=== PATIENT | male | born 1980 | race American Indian/Alaskan Native ===

== ENCOUNTER 2021-10-18 07:31 | Inpatient (IN) | payer SELFPAY ==
--- NOTE | 2021-10-18 08:26 | Emergency Department Report ---
ED General Adult HPI - General Chief complaint: Altered Mental Status Time Seen by Provider: 10/18/21 08:09 Source: patient, EMS (EMS documentation reviewed and appreciated), RN notes reviewed Mode of arrival: Stretcher Limitations: Altered Mental Status - History of Present Illness Initial comments: The patient was evaluated in the emergency department for symptoms described in the history of present illness. He/she was evaluated in the context of the global COVID-19 pandemic, which necessitated consideration that the patient might be at risk for infection with the virus that causes COVID-19. Institutional protocols and algorithms that pertain to the evaluation of helen ents at risk for COVID-19 are in a state of rapid change based on information released by regulatory bodies including the CDC and federal and state organizations. These policies and algorithms were followed during the patient's care in the emergency department. Please note that these policies, procedures and recommendations changed on a rapid basis. As per EMS documentation, EMS and fire department dispatched to a local street and [address] four 41-year-old male complaining of a psychiatric problem/abnormal behavior/suicide attempt. Patient is reportedly running in the middle of above street intersection, trying to jump on cars and open doors as they were moving. Police Department detained the patient in handcuffs, and patient is reportedly combative in the field. Patient required administration of haloperidol, 5 mg, midazolam, 5 mg, and Benadryl, 50 mg. The patient is a 41-year-old gentleman with a possible history of psychiatric disease. He is brought to the hospital by emergency medical services. Patient is acutely febrile to 102.5 degrees rectally, tachycardic, and markedly diaphoretic. The patient is acutely altered. His last known well time is not known. As per verbal report from nursing team, 911 is activated because the patient is running around on the street, and possibly jumping up and down in cars. In the emergency room, the patient is confused but moving 4 extremities. He is not able to describe the qualitative nature of his symptoms, exacerbating factors relieving factors or aggravating factors. He is not accompanied by friends or family at this time for additional information. -: unknown - Related Data Allergies Allergy/AdvReac Type Severity Reaction Status Date / Time No Known Allergies Allergy Verified 10/18/21 08:28 ED Review of Systems ROS: Stated complaint: COMBATIVE Other details as noted in HPI Comment: Unobtainable due to pts medical conditions ED Physical Exam - General Limitations: Altered Mental Status General appearance: anxious - Head Head exam: Present: atraumatic, normocephalic - Eye Eye exam: Present: normal appearance, EOMI - ENT ENT exam: Present: normal exam, normal orophraynx, mucous membranes moist, normal external ear exam - Neck Neck exam: Present: normal inspection, full ROM. Absent: tenderness, meningismus - Respiratory Respiratory exam: Present: normal lung sounds bilaterally. Absent: respiratory distress, wheezes, rales, rhonchi, stridor, decreased breath sounds - Cardiovascular Cardiovascular Exam: Present: normal rhythm, tachycardia, normal heart sounds. Absent: bradycardia, irregular rhythm, systolic murmur, diastolic murmur, rubs, gallop - GI/Abdominal GI/Abdominal exam: Present: soft. Absent: distended, tenderness, guarding, rebound, rigid, pulsatile mass - Rectal Rectal exam: Present: normal inspection - exam: Present: normal inspection - Extremities Exam Extremities exam: Present: normal inspection, full ROM, other (2+ pulses noted in the bilateral upper and lower extremities. There is no palpable cord. negative Homans sign. Muscular compartments are soft. The pelvis is stable.). Absent: pedal edema, calf tenderness - Back Exam Back exam: Present: normal inspection. Absent: tenderness, CVA tenderness (R), CVA tenderness (L), paraspinal tenderness, vertebral tenderness - Neurological Exam Neurological exam: Present: altered (There is fatigable clonus in the bilateral lower extremities. There are downgoing plantar reflexes.), other (There is no facial droop. The tongue is midline. Moving 4 extremities spontaneously.). Absent: reflexes normal (The patient is not hyperreflexic) - Psychiatric Psychiatric exam: Present: anxious - Skin Skin exam: Present: warm, dry, intact, normal color. Absent: rash ED Course Vital Signs 10/18/21 10/18/21 10/18/21 08:36 08:45 09:01 Temperature 102.5 F H Pulse Rate 109 H Respiratory 31 H Rate Blood Pressure 126/80 O2 Sat by Pulse 88 90 92 Oximetry 10/18/21 10/18/21 10/18/21 09:26 09:31 09:43 Temperature Pulse Rate 103 H 106 H Respiratory 24 30 H Rate Blood Pressure 126/80 134/85 O2 Sat by Pulse 94 94 94 Oximetry 10/18/21 10/18/21 10/18/21 09:45 10:01 10:15 Temperature Pulse Rate 104 H 100 H 102 H Respiratory 29 H 28 H 29 H Rate Blood Pressure 142/74 118/76 124/79 O2 Sat by Pulse 94 94 94 Oximetry 10/18/21 10/18/21 10/18/21 10:18 10:31 10:45 Temperature 98.7 F Pulse Rate 108 H 111 H Respiratory 22 23 Rate Blood Pressure 133/73 116/65 O2 Sat by Pulse 89 91 Oximetry 10/18/21 10/18/21 11:01 11:15 Temperature Pulse Rate 104 H 103 H Respiratory 27 H 28 H Rate Blood Pressure 117/64 108/65 O2 Sat by Pulse 92 95 Oximetry - Reevaluation(s) Reevaluation #1: 10/18/21 09:12 Differential diagnosis, including but not limited to: Acute agitated delirium, meningitis, encephalitis, toxic encephalopathy, metabolic encephalopathy Pneumonia, UTI, Neuroleptic malignant syndrome Assessment and plan: 41-year-old gentleman with acute agitated delirium, found to be febrile, diaphoretic, and tachycardic. There are no meningeal signs. Code sepsis called overhead. Medicate aggressively with ceftriaxone, acyclovir, vancomycin and steroids. Place patient on isolation, x-ray of the chest unremarkable, laboratory studies demonstrate hemoconcentration, lactic acidosis and metabolic acidosis. Patient not accompanied by friends or family at this time for collateral information or additional information. He does require a spinal tap for urgent diagnostic reasons, to exclude intracranial infection/process. He will likely require 2 provider emergent/administrative consent for spinal tap, with possible component of moderate sedation. Reassess once CT scan brain has been acquired and interpreted. Anticipate admission to the medical service. I have placed this patient on a 1013 for documented psychotic behavior, but he cannot be medically cleared from emergency room. He will require admission to the medical service for optimization Reevaluation #2: 10/18/21 09:50 Patient seen and reexamined. He is remarkably lucid. His temperature is now 97 degrees. He is awake, alert, oriented. He exhibits decision-making capacity at this time. He does not have recollection of what transpired prior to his arrival. He has no meningeal signs, and he is not currently encephalopathic. Laboratory studies are reviewed, and demonstrate lactic acidosis, hemoconcentra tion, as well as hyperammonemia. Laboratory studies are initially grossly hemolyzed, multiple calls made to the chemistry lab, they state phlebotomy is coming by to perform repeat acquisition of chemistries. I specifically discussed spinal tap recommendation with patient, and specific indications for the spinal tap. I also discussed risks and benefits, and medical rationale behind spinal tap. At this point in time, meningitis/encephalitis is very unlikely. However, given initial presentation, I find it prudent to acquire CSF. The patient is agreeable, and indicates he will provide verbal and written informed consent for spinal tap. At this point in time, does not require moderate sedation. Hospital physician, Dr. Yamilka Maxwell to admit to [facility] Reevaluation #3: 10/18/21 11:01 Spinal tap is successful. Reevaluation #4: 10/18/21 12:05 Repeat glucose 120. Patient eating. We will hold off on dextrose drip at this time. - Lumbar Puncture Consent Obtained: verbal consent, written consent, emergent situation Time Out Performed: Yes Indication for Procedure: fever work up Patient Position: Sitting Upright/Leaning F Skin Prep: Povidone-Iodine 1% Local Anesthetic Used: Lidocaine 1% Amount of anesthesia used (mls): 8 Spinal Needle Gauge: 20G Spinal Needle Length: 3in Interspace Used: L4-L5 Fluid Initially Obtained: clear Complications: none Patient Tolerated Procedure: well ED Medical Decision Making - Lab Data Result diagrams: 10/18/21 08:35 10/18/21 09:34 Lab Results 10/18/21 10/18/21 10/18/21 Range/Units 08:35 08:35 08:35 WBC 10.1 (4.5-11.0) K/mm3 RBC 5.20 H (3.65-5.03) M/mm3 Hgb 16.4 H (11.8-15.2) gm/dl Hct 51.0 H (35.5-45.6) % MCV 98 H (84-94) fl MCH 32 (28-32) pg MCHC 32 (32-34) % RDW 14.0 (13.2-15.2) % Plt Count 259 (140-440) K/mm3 PT 13.4 (12.2-14.9) Sec. INR 0.92 (0.87-1.13) APTT 24.3 (24.2-36.6) Sec. Sodium (137-145) mmol/L Chloride (98-107) mmol/L Carbon Dioxide (22-30) mmol/L Anion Gap mmol/L BUN (9-20) mg/dL Creatinine (0.8-1.3) mg/dL Estimated GFR ml/min BUN/Creatinine Ratio % Glucose (75-100) mg/dL Lactic Acid 9.00 H* (0.7-2.0) mmol/L Calcium (8.4-10.2) mg/dL Magnesium (1.7-2.3) mg/dL Total Bilirubin (0.1-1.2) mg/dL Troponin T (0.00-0.029) ng/mL Total Protein (6.3-8.2) g/dL Salicylates (2.8-20.0) mg/dL Acetaminophen (10.0-30.0) ug/mL 10/18/21 10/18/21 10/18/21 Range/Units 08:35 08:35 08:35 WBC (4.5-11.0) K/mm3 RBC (3.65-5.03) M/mm3 Hgb (11.8-15.2) gm/dl Hct (35.5-45.6) % MCV (84-94) fl MCH (28-32) pg MCHC (32-34) % RDW (13.2-15.2) % Plt Count (140-440) K/mm3 PT (12.2-14.9) Sec. INR (0.87-1.13) APTT (24.2-36.6) Sec. Sodium 139 (137-145) mmol/L Chloride 102.0 (98-107) mmol/L Carbon Dioxide 15 L (22-30) mmol/L Anion Gap 32 mmol/L BUN 18 (9-20) mg/dL Creatinine 2.4 H (0.8-1.3) mg/dL Estimated GFR 36 ml/min BUN/Creatinine Ratio 8 % Glucose 82 (75-100) mg/dL Lactic Acid (0.7-2.0) mmol/L Calcium 10.7 H (8.4-10.2) mg/dL Magnesium 3.70 H (1.7-2.3) mg/dL Total Bilirubin 0.50 (0.1-1.2) mg/dL Troponin T 0.013 (0.00-0.029) ng/mL Total Protein 9.9 H (6.3-8.2) g/dL Salicylates < 0.3 L (2.8-20.0) mg/dL Acetaminophen 5.0 L (10.0-30.0) ug/mL Lab Results 10/18/21 10/18/21 10/18/21 Range/Units 08:35 08:35 08:35 WBC 10.1 (4.5-11.0) K/mm3 RBC 5.20 H (3.65-5.03) M/mm3 Hgb 16.4 H (11.8-15.2) gm/dl Hct 51.0 H (35.5-45.6) % MCV 98 H (84-94) fl MCH 32 (28-32) pg MCHC 32 (32-34) % RDW 14.0 (13.2-15.2) % Plt Count 259 (140-440) K/mm3 Add Manual Diff Complete Total Counted 100 Seg Neuts % (Manual) 67.0 (40.0-70.0) % Band Neutrophils % 2.0 % Lymphocytes % (Manual) 23.0 (13.4-35.0) % Reactive Lymphs % (Man) 0 % Monocytes % (Manual) 6.0 (0.0-7.3) % Eosinophils % (Manual) 1.0 (0.0-4.3) % Basophils % (Manual) 0 (0.0-1.8) % Metamyelocytes % 1.0 % Myelocytes % 0 % Promyelocytes % 0 % Blast Cells % 0 % Nucleated RBC % Not Reportable Seg Neutrophils # Man 6.8 (1.8-7.7) K/mm3 Band Neutrophils # 0.2 K/mm3 Lymphocytes # (Manual) 2.3 (1.2-5.4) K/mm3 Abs React Lymphs (Man) 0.0 K/mm3 Monocytes # (Manual) 0.6 (0.0-0.8) K/mm3 Eosinophils # (Manual) 0.1 (0.0-0.4) K/mm3 Basophils # (Manual) 0.0 (0.0-0.1) K/mm3 Metamyelocytes # 0.1 K/mm3 Myelocytes # 0.0 K/mm3 Promyelocytes # 0.0 K/mm3 Blast Cells # 0.0 K/mm3 WBC Morphology Not Reportable Hypersegmented Neuts Not Reportable Hyposegmented Neuts Not Reportable Hypogranular Neuts Not Reportable Smudge Cells Not Reportable Toxic Granulation Not Reportable Toxic Vacuolation Not Reportable Dohle Bodies Not Reportable Pelger-Huet Anomaly Not Reportable Dangelo Rods Not Reportable Platelet Estimate Consistent w auto Clumped Platelets Not Reportable Plt Clumps, EDTA Not Reportable Large Platelets Not Reportable Giant Platelets Not Reportable Platelet Satelliting Not Reportable Plt Morphology Comment Not Reportable RBC Morphology Normal Dimorphic RBCs Not Reportable Polychromasia Not Reportable Hypochromasia Not Reportable Poikilocytosis Not Reportable Anisocytosis Not Reportable Microcytosis Not Reportable Macrocytosis Not Reportable Spherocytes Not Reportable Pappenheimer Bodies Not Reportable Sickle Cells Not Reportable Target Cells Not Reportable Tear Drop Cells Not Reportable Ovalocytes Not Reportable Helmet Cells Not Reportable Arechiga-[place] Bodies Not Reportable [place] Rings Not Reportable [place] Cells Not Reportable Bite Cells Not Reportable Crenated Cell Not Reportable Elliptocytes Not Reportable Acanthocytes (Spur) Not Reportable Rouleaux Not Reportable Hemoglobin C Crystals Not Reportable Schistocytes Not Reportable Malaria parasites Not Reportable Juan Bodies Not Reportable Hem Pathologist Commnt No PT 13.4 (12.2-14.9) Sec. INR 0.92 (0.87-1.13) APTT 24.3 (24.2-36.6) Sec. Sodium Potassium Chloride Carbon Dioxide Anion Gap BUN Creatinine Estimated GFR BUN/Creatinine Ratio Glucose Lactic Acid 9.00 H* (0.7-2.0) mmol/L Calcium Magnesium Total Bilirubin AST ALT Alkaline Phosphatase Ammonia (25-60) umol/L Total Creatine Kinase Troponin T Total Protein Albumin Albumin/Globulin Ratio TSH (0.270-4.200) mlU/mL Salicylates (2.8-20.0) mg/dL Acetaminophen (10.0-30.0) ug/mL Plasma/Serum Alcohol (0-0.07) % 10/18/21 10/18/21 10/18/21 Range/Units 08:35 08:35 08:35 WBC (4.5-11.0) K/mm3 RBC (3.65-5.03) M/mm3 Hgb (11.8-15.2) gm/dl Hct (35.5-45.6) % MCV (84-94) fl MCH (28-32) pg MCHC (32-34) % RDW (13.2-15.2) % Plt Count (140-440) K/mm3 Add Manual Diff Total Counted Seg Neuts % (Manual) (40.0-70.0) % Band Neutrophils % % Lymphocytes % (Manual) (13.4-35.0) % Reactive Lymphs % (Man) % Monocytes % (Manual) (0.0-7.3) % Eosinophils % (Manual) (0.0-4.3) % Basophils % (Manual) (0.0-1.8) % Metamyelocytes % % Myelocytes % % Promyelocytes % % Blast Cells % % Nucleated RBC % Seg Neutrophils # Man (1.8-7.7) K/mm3 Band Neutrophils # K/mm3 Lymphocytes # (Manual) (1.2-5.4) K/mm3 Abs React Lymphs (Man) K/mm3 Monocytes # (Manual) (0.0-0.8) K/mm3 Eosinophils # (Manual) (0.0-0.4) K/mm3 Basophils # (Manual) (0.0-0.1) K/mm3 Metamyelocytes # K/mm3 Myelocytes # K/mm3 Promyelocytes # K/mm3 Blast Cells # K/mm3 WBC Morphology Hypersegmented Neuts Hyposegmented Neuts Hypogranular Neuts Smudge Cells Toxic Granulation Toxic Vacuolation Dohle Bodies Pelger-Huet Anomaly Dangelo Rods Platelet Estimate Clumped Platelets Plt Clumps, EDTA Large Platelets Giant Platelets Platelet Satelliting Plt Morphology Comment RBC Morphology Dimorphic RBCs Polychromasia Hypochromasia Poikilocytosis Anisocytosis Microcytosis Macrocytosis Spherocytes Pappenheimer Bodies Sickle Cells Target Cells Tear Drop Cells Ovalocytes Helmet Cells Arechiga-Summerfield Bodies [place] Rings [place] Cells Bite Cells Crenated Cell Elliptocytes Acanthocytes (Spur) Rouleaux Hemoglobin C Crystals Schistocytes Malaria parasites Juan Bodies Hem Pathologist Commnt PT (12.2-14.9) Sec. INR (0.87-1.13) APTT (24.2-36.6) Sec. Sodium TNR Potassium TNR Chloride TNR Carbon Dioxide TNR Anion Gap TNR BUN TNR Creatinine TNR Estimated GFR TNR BUN/Creatinine Ratio TNR Glucose TNR Lactic Acid (0.7-2.0) mmol/L Calcium TNR Magnesium TNR Total Bilirubin TNR AST TNR ALT TNR Alkaline Phosphatase TNR Ammonia 86.0 H (25-60) umol/L Total Creatine Kinase TNR Troponin T TNR Total Protein TNR Albumin TNR Albumin/Globulin Ratio TNR TSH 1.490 (0.270-4.200) mlU/mL Salicylates (2.8-20.0) mg/dL Acetaminophen (10.0-30.0) ug/mL Plasma/Serum Alcohol (0-0.07) % 10/18/21 10/18/21 10/18/21 Range/Units 08:35 08:35 08:35 WBC (4.5-11.0) K/mm3 RBC (3.65-5.03) M/mm3 Hgb (11.8-15.2) gm/dl Hct (35.5-45.6) % MCV (84-94) fl MCH (28-32) pg MCHC (32-34) % RDW (13.2-15.2) % Plt Count (140-440) K/mm3 Add Manual Diff Total Counted Seg Neuts % (Manual) (40.0-70.0) % Band Neutrophils % % Lymphocytes % (Manual) (13.4-35.0) % Reactive Lymphs % (Man) % Monocytes % (Manual) (0.0-7.3) % Eosinophils % (Manual) (0.0-4.3) % Basophils % (Manual) (0.0-1.8) % Metamyelocytes % % Myelocytes % % Promyelocytes % % Blast Cells % % Nucleated RBC % Seg Neutrophils # Man (1.8-7.7) K/mm3 Band Neutrophils # K/mm3 Lymphocytes # (Manual) (1.2-5.4) K/mm3 Abs React Lymphs (Man) K/mm3 Monocytes # (Manual) (0.0-0.8) K/mm3 Eosinophils # (Manual) (0.0-0.4) K/mm3 Basophils # (Manual) (0.0-0.1) K/mm3 Metamyelocytes # K/mm3 Myelocytes # K/mm3 Promyelocytes # K/mm3 Blast Cells # K/mm3 WBC Morphology Hypersegmented Neuts Hyposegmented Neuts Hypogranular Neuts Smudge Cells Toxic Granulation Toxic Vacuolation Dohle Bodies Pelger-Huet Anomaly Dangelo Rods Platelet Estimate Clumped Platelets Plt Clumps, EDTA Large Platelets Giant Platelets Platelet Satelliting Plt Morphology Comment RBC Morphology Dimorphic RBCs Polychromasia Hypochromasia Poikilocytosis Anisocytosis Microcytosis Macrocytosis Spherocytes Pappenheimer Bodies Sickle Cells Target Cells Tear Drop Cells Ovalocytes Helmet Cells Arechiga-Summerfield Bodies [place] Rings [place] Cells Bite Cells Crenated Cell Elliptocytes Acanthocytes (Spur) Rouleaux Hemoglobin C Crystals Schistocytes Malaria parasites Juan Bodies Hem Pathologist Commnt PT (12.2-14.9) Sec. INR (0.87-1.13) APTT (24.2-36.6) Sec. Sodium Potassium Chloride Carbon Dioxide Anion Gap BUN Creatinine Estimated GFR BUN/Creatinine Ratio Glucose Lactic Acid (0.7-2.0) mmol/L Calcium Magnesium Total Bilirubin AST ALT Alkaline Phosphatase Ammonia (25-60) umol/L Total Creatine Kinase Troponin T Total Protein Albumin Albumin/Globulin Ratio TSH (0.270-4.200) mlU/mL Salicylates < 0.3 L (2.8-20.0) mg/dL Acetaminophen 5.0 L (10.0-30.0) ug/mL Plasma/Serum Alcohol 0.08 H (0-0.07) % 10/18/21 10/18/21 Range/Units 09:34 09:34 WBC (4.5-11.0) K/mm3 RBC (3.65-5.03) M/mm3 Hgb (11.8-15.2) gm/dl Hct (35.5-45.6) % MCV (84-94) fl MCH (28-32) pg MCHC (32-34) % RDW (13.2-15.2) % Plt Count (140-440) K/mm3 Add Manual Diff Total Counted Seg Neuts % (Manual) (40.0-70.0) % Band Neutrophils % % Lymphocytes % (Manual) (13.4-35.0) % Reactive Lymphs % (Man) % Monocytes % (Manual) (0.0-7.3) % Eosinophils % (Manual) (0.0-4.3) % Basophils % (Manual) (0.0-1.8) % Metamyelocytes % % Myelocytes % % Promyelocytes % % Blast Cells % % Nucleated RBC % Seg Neutrophils # Man (1.8-7.7) K/mm3 Band Neutrophils # K/mm3 Lymphocytes # (Manual) (1.2-5.4) K/mm3 Abs React Lymphs (Man) K/mm3 Monocytes # (Manual) (0.0-0.8) K/mm3 Eosinophils # (Manual) (0.0-0.4) K/mm3 Basophils # (Manual) (0.0-0.1) K/mm3 Metamyelocytes # K/mm3 Myelocytes # K/mm3 Promyelocytes # K/mm3 Blast Cells # K/mm3 WBC Morphology Hypersegmented Neuts Hyposegmented Neuts Hypogranular Neuts Smudge Cells Toxic Granulation Toxic Vacuolation Dohle Bodies Pelger-Huet Anomaly Dangelo Rods Platelet Estimate Clumped Platelets Plt Clumps, EDTA Large Platelets Giant Platelets Platelet Satelliting Plt Morphology Comment RBC Morphology Dimorphic RBCs Polychromasia Hypochromasia Poikilocytosis Anisocytosis Microcytosis Macrocytosis Spherocytes Pappenheimer Bodies Sickle Cells Target Cells Tear Drop Cells Ovalocytes Helmet Cells Arechiga-[place] Bodies [place] Rings [place] Cells Bite Cells Crenated Cell Elliptocytes Acanthocytes (Spur) Rouleaux Hemoglobin C Crystals Schistocytes Malaria parasites Juan Bodies Hem Pathologist Commnt PT (12.2-14.9) Sec. INR (0.87-1.13) APTT (24.2-36.6) Sec. Sodium 143 Potassium 5.2 H Chloride 108.5 H Carbon Dioxide 14 L Anion Gap 26 BUN 18 Creatinine 2.0 H Estimated GFR 44 BUN/Creatinine Ratio 9 Glucose 65 L Lactic Acid 5.90 H* (0.7-2.0) mmol/L Calcium 9.3 Magnesium 3.20 H Total Bilirubin 0.30 AST 661 H ALT 481 H Alkaline Phosphatase 108 Ammonia (25-60) umol/L Total Creatine Kinase 2493 H Troponin T 0.015 Total Protein 7.9 Albumin 5.3 H Albumin/Globulin Ratio 2.0 TSH (0.270-4.200) mlU/mL Salicylates (2.8-20.0) mg/dL Acetaminophen (10.0-30.0) ug/mL Plasma/Serum Alcohol (0-0.07) % - EKG Data -: EKG Interpreted by Me EKG shows normal: sinus rhythm Rate: normal - EKG Data 10/18/21 09:50 2 EKG is interpreted at 09: 46 Sinus rhythm, tachycardia, rate 100 bpm. Left axis deviation, left anterior fascicular block, QTC 4 4 5 ms, high left ventricular voltage. Abnormal EKG. Not a STEMI. - Radiology Data Radiology results: report reviewed, image reviewed interpreted by me: 1 view x-ray of the chest, interpreted by myself, negative for acute finding Specifically no infiltrate, no pneumothorax, unremarkable bony anatomy CHEST 1 VIEW 10/18/2021 8:33 AM INDICATION / CLINICAL INFORMATION: Altered Mental Status. COMPARISON: None available. FINDINGS: SUPPORT DEVICES: None. HEART / MEDIASTINUM: No significant abnormality. LUNGS / PLEURA: No significant pulmonary or pleural abnormality. Moderate elevation right hemidiaphragm. No pneumothorax. ADDITIONAL FINDINGS: No significant additional findings. IMPRESSION: No acute abnormality. Signer Name: Irving Orellana MD Signed: 10/18/2021 8:04 AM Workstation Name: [email or web address] CT HEAD WITHOUT CONTRAST INDICATION / CLINICAL INFORMATION: Altered Mental Status. TECHNIQUE: Axial imaging performed from the skull apex through the skull base without the use of contrast. Sagittal and coronal reformatted images. All CT scans at this location are performed using CT dose reduction for ALARA by means of automated exposure control. COMPARISON: None available. FINDINGS: CEREBRAL PARENCHYMA: No significant abnormality. No acute territorial infarct. HEMORRHAGE: None. EXTRA-AXIAL SPACES: Normal in size and morphology for the patient's age. VENTRICULAR SYSTEM: Normal in size and morphology for the patient's age. MIDLINE SHIFT OR HERNIATION: None. CEREBELLUM / BRAINSTEM: No significant abnormality. CALVARIUM: No significant abnormality. ORBITS: Normal as visualized. PARANASAL SINUSES / MASTOID AIR CELLS: Normal as visualized. SOFT TISSUES of HEAD: No significant abnormality. ADDITIONAL FINDINGS: None. IMPRE SSION: No acute intracranial abnormality. Signer Name: Lebron Adams Jr, MD Signed: 10/18/2021 8:24 AM Workstation Name: [id number] Critical Care Time: Yes Critical care time in (mins) excluding proc time.: 45 Critical care attestation.: If time is entered above; I have spent that time in minutes in the direct care of this critically ill patient, excluding procedure time. ED Disposition Clinical Impression: SIRS (systemic inflammatory response syndrome), Metabolic acidosis, Lactic acidosis, Acute delirium, Renal insufficiency, Transaminitis, Elevated CK, Hypoglycemia Disposition: 09 ADMITTED INPATIENT Is pt being admited?: Yes Condition: Serious
[2021-10-18] MEDS ORDERED: dexAMETHasone 20 MG/5 ML VIAL IV SCH (08:30)
[2021-10-18] MEDS ORDERED: diazePAM 10 MG/2 ML SYRINGE IV SCH (08:30)
[2021-10-18] MEDS ORDERED: cefTRIAXone/NS 2 GM/100 ML 2 GM/100 ML BAG IV SCH (08:30)
[2021-10-18 08:49] LABS: Hemoglobin 16.4 gm/dl (11.8-15.2); Mean Corpuscular HGB Conc 32 % (32-34); Mean Corpuscular Volume 98 fl (84-94); Platelet Count 259 K/mm3 (140-440)
[2021-10-18] MEDS ORDERED: HALOPERIDOL LACTATE 5 MG/1 ML INJ IM PRN (09:00)
[2021-10-18] MEDS ORDERED: ACYCLOVIR 800 MG in SODIUM CHLORIDE 0.9% 100 ML IV SCH (09:00)
[2021-10-18] MEDS ORDERED: SODIUM CHLORIDE 0.9% 1000 ML 3,000 ML IV ONE (09:00)
[2021-10-18] MEDS ORDERED: LORazepam 2 MG/ML VIAL IM PRN (09:00)
[2021-10-18 09:02] LABS: INR 0.92 (0.87-1.13)
[2021-10-18 09:03] LABS: Partial Thromboplastin Time 24.3 Sec. (24.2-36.6)
--- NOTE | 2021-10-18 09:08 | XRay Report ---
CHEST 1 VIEW 10/18/2021 8:33 AM INDICATION / CLINICAL INFORMATION: Altered Mental Status. COMPARISON: None available. FINDINGS: SUPPORT DEVICES: None. HEART / MEDIASTINUM: No significant abnormality. LUNGS / PLEURA: No significant pulmonary or pleural abnormality. Moderate elevation right hemidiaphra gm. No pneumothorax. ADDITIONAL FINDINGS: No significant additional findings. IMPRESSION: No acute abnormality. Signer Name: Irving Orellana MD Signed: 10/18/2021 9:04 AM Workstation Name: [email or web address]
[2021-10-18 09:18] LABS: BUN/Creatinine Ratio TNR; Blood Urea Nitrogen TNR mg/dL (9-20); Calcium TNR mg/dL (8.4-10.2)
[2021-10-18 09:19] LABS: Alanine Aminotransferase TNR units/L (7-56); Albumin TNR g/dL (3.9-5); Hemolysis Index TNR
--- NOTE | 2021-10-18 09:29 | Cat Scan Report ---
CT HEAD WITHOUT CONTRAST INDICATION / CLINICAL INFORMATION: Altered Mental Status. TECHNIQUE: Axial imaging performed from the skull apex through the skull base without the use of cont rast. Sagittal and coronal reformatted images. All CT scans at this location are performed using CT dose reduction for ALARA by means of automated exposure control. COMPARISON: None available. FINDINGS: CEREBRAL PARENCHYMA: No significant abnormality. No acute territorial infarct. HEMORRHAGE: None. EXTRA-AXIAL SPACES: Normal in size and morphology for the patient's age. VENTRICULAR SYSTEM: Normal in size and morphology for the patient's age. MIDLINE SHIFT OR HERNIATION: None. CEREBELLUM / BRAINSTEM: No significant abnormality. CALVARIUM: No significant abnormality. ORBITS: Normal as visualized. PARANASAL SINUSES / MASTOID AIR CELLS: Normal as visualized. SOFT TISSUES of HEAD: No significant abnormality. ADDITIONAL FINDINGS: None. IMPRESSION: No acute intracranial abnormality. Signer Name: Lebron Adams Jr, MD Signed: 10/18/2021 9:24 AM Workstation Name: [id number]
[2021-10-18] MEDS ORDERED: LIDOCAINE (1%) 10 MG/1 ML VIAL 20 ML MDV INFILTRATI ONE (09:49)
[2021-10-18 09:50] LABS: Band Neutrophils # (Manual) 0.2 K/mm3; Basophils % (Manual) 0 % (0.0-1.8); Platelet Estimate Consistent w Auto; RBC Morphology Normal; Total Cells Counted 100
[2021-10-18] MEDS ORDERED: VANCOMYCIN 1,750 MG in SODIUM CHLORIDE 0.9% 500 ML 500 ML IV ONE (10:00)
[2021-10-18] MEDS ORDERED: MIDAZOLAM 5 MG/5 ML INJ MDV IV SCH (10:00)
[2021-10-18 10:04] LABS: Albumin 5.3 g/dL (3.9-5); Calcium 9.3 mg/dL (8.4-10.2)
[2021-10-18] MEDS ORDERED: DEXTROSE 10% *Hypoglycemia IV PRN (10:16)
[2021-10-18] MEDS ORDERED: LACTULOSE 20 GM/30 ML ORAL LIQD PO ONE (10:18)
[2021-10-18] MEDS ORDERED: ACETAMINOPHEN 325 MG TAB PO PRN (10:45)
[2021-10-18] MEDS ORDERED: ONDANSETRON 4 MG/2 ML INJ IV PRN (10:45)
[2021-10-18] MEDS ORDERED: MORPHINE 4 MG/1 ML INJ IV PRN (10:45)
[2021-10-18] MEDS ORDERED: oxyCODONE /ACETAMINOPHEN 5-325MG TAB PO PRN (10:45)
[2021-10-18] MEDS ORDERED: NALOXONE 0.4 MG/1 ML INJ IV PRN (10:45)
[2021-10-18 10:50] LABS: Amphetamine Screen,Urine Negative; Cannabinoid Screen,Urine Negative; Methadone Screen,Urine Negative; Opiate Screen,Urine Negative
[2021-10-18 11:00] LABS: Bilirubin,Urine NEG (Negative); Blood,Urine LG (Negative); Color,Urine Yellow (Yellow); Granular Casts,Urine 3 /LPF; Hyaline Casts,Urine 4 /LPF; Mucus,Urine FEW /HPF; Sperm,Urine 2+ /HPF (NP); Urobilinogen,Urine < 2.0 mg/dL (<2.0)
[2021-10-18] MEDS ORDERED: THIAMINE 100 MG, FOLIC ACID 1 MG, MULTIPLE VITAMIN INJ, ADULT 10 ML in SODIUM CHLORIDE ... IV ONE (11:00)
[2021-10-18 11:14] LABS: Benzodiazepines Screen,Urine Positive; Cocaine Screen,Urine Positive
[2021-10-18] MEDS ORDERED: DEXTROSE 50% IN WATER (25GM) 50 ML SYRINGE IV ONE (11:27)
[2021-10-18] MEDS ORDERED: DEXTROSE 50% IN WATER (25GM) 50 ML SYRINGE IV PRN (11:28)
[2021-10-18] MEDS ORDERED: MIDAZOLAM 2 MG/2 ML INJ IV SCH ×2 (11:30→12:30)
[2021-10-18] MEDS ORDERED: MIDAZOLAM 5 MG/5 ML INJ MDV IV STA (11:44)
[2021-10-18] MEDS ORDERED: LACTATED RINGERS 1,000 ML IV ONE (12:00)
[2021-10-18] MEDS ORDERED: DEXTROSE 50% IN WATER (25GM) 50 ML VIAL IV ONE (12:00)
[2021-10-18] MEDS ORDERED: DEXTROSE 10% IN WATER 1,000 ML IV SCH (12:00)
[2021-10-18 12:30] LABS: Glucose,CSF 88 mg/dL
[2021-10-18 12:35] LABS: Hepatitis B Surface Antigen Non-Reactive (Negative); Hepatitis C Virus Antibody Non-Reactive (NonReactive)
[2021-10-18 12:36] LABS: Appearance,CSF Clear; Red Blood Cell,CSF 17 /mm3 (0-0); Total Cells Counted 87 /mm3; White Blood Cell,CSF 3 /mm3 (1-10)
[2021-10-18] MEDS ORDERED: LACTULOSE 20 GM/30 ML ORAL LIQD PO SCH (13:30)
--- NOTE | 2021-10-18 13:56 | History and Physical Report ---
History of Present Illness Date of examination: 10/18/21 Date of admission: 10/18/21 10:45 Chief complaint: Altered mental status History of present illness: The patient is a 41-year-old gentleman with a possible history of psychiatric disease. He is brought to the hospital by emergency medical services. Patient is acutely febrile to 102.5 degrees rectally, tachycardic, and markedly diaphoretic. The patient is acutely altered. His last known well time is not known. As per verbal report from nursing team, 911 is activated because the patient is running around on the street, and possibly jumping up and down on cars. In the emergency room, the patient is confused but moving 4 extremities. He is not able to describe the qualitative nature of his symptoms, exacerbating factors relieving factors or aggravating factors. He is not accompanied by friends or family at this time for additional information. On presentation, the patient was tachycardic and tachypneic and hypoxic requiring 2 L nasal cannula. Patient had labs are remarkable for potassium 5.2, creatinine 2.0, creatine kinase 2493, lactic acid 9.0 (later decreased to 5.9), magnesium 3.2, AST 661, ALT 41, and ammonia 86. In the ED, the patient underwent lumbar puncture by the ED physician due to concerns for possible meningitis as a source of acute encephalopathy. Patient tolerated the procedure well. Patient was administered 3 L IV fluids, IV Decadron 10 mg x 1, Rocephin, vancomycin, and acyclovir. Patient was placed on a 1013 by the ED physician due to concerns for acute psy chosis. The patient was admitted for management of acute metabolic versus toxic encephalopathy. Past History Past Medical History: No medical history Past Surgical History: No surgical history Social history: , lives with family, full code Family history: hypertension (Mother) Medications and Allergies Allergies Allergy/AdvReac Type Severity Reaction Status Date / Time No Known Allergies Allergy Verified 10/18/21 08:28 Active Meds: Active Medications Acetaminophen (Acetaminophen 325 Mg Tab) 650 mg PO Q4H PRN PRN Reason: Pain MILD(1-3)/Fever >100.5/PATHAK Dextrose (Dextrose 10% *Hypoglycemia) 75 ml IV PRN PRN PRN Reason: Hypoglycemia Dextrose (Dextrose 50% In Water (25gm) 50 Ml Syringe) 50 ml IV Q30MIN PRN; Protocol PRN Reason: Hypoglycemia Enoxaparin Sodium (Enoxaparin 40 Mg/0.4 Ml Inj) 40 mg SUB-Q DAILY RUDDY; Protocol Haloperidol Lactate (Haloperidol Lactate 5 Mg/1 Ml Inj) 5 mg IM Q6H PRN PRN Reason: Agitation Thiamine HCl 100 mg/ Folic Acid 1 mg/ Multivitamins/Minerals 10 ml/ Sodium Chloride 1,011.2 mls @ 250 mls/hr IV ONCE ONE Stop: 10/18/21 15:02 Last Admin: 10/18/21 11:16 Dose: 250 mls/hr Dextrose (D10w) 1,000 mls @ 125 mls/hr IV DIRECT RUDDY Lactulose (Lactulose 20 Gm/30 Ml Oral Liqd) 20 gm PO ONCE@1330 RUDDY Stop: 10/18/21 16:00 Lorazepam (Lorazepam 2 Mg/Ml Vial) 2 mg IM Q4H PRN PRN Reason: Agitation Midazolam HCl (Midazolam 2 Mg/2 Ml Inj) 1 mg IV ONCE@1130 RUDDY Stop: 10/18/21 14:00 Last Admin: 10/18/21 12:47 Dose: 1 mg Morphine Sulfate (Morphine 4 Mg/1 Ml Inj) 2 mg IV Q4H PRN PRN Reason: Pain , Severe (7-10) Naloxone HCl (Naloxone 0.4 Mg/1 Ml Inj) 0.1 mg IV Q2MIN PRN PRN Reason: Res Rate </= 8 or 02 SAT < 92% Ondansetron HCl (Ondansetron 4 Mg/2 Ml Inj) 4 mg IV Q8H PRN PRN Reason: Nausea And Vomiting Oxycodone/Acetaminophen (Oxycodone /Acetaminophen 5-325mg Tab) 1 tab PO Q6H PRN PRN Reason: Pain, Moderate (4-6) Sodium Chloride (Sodium Chloride 0.9% 10 Ml Flush Syringe) 10 ml IV BID RUDDY Sodium Chloride (Sodium Chloride 0.9% 10 Ml Flush Syringe) 10 ml IV PRN PRN PRN Reason: LINE FLUSH Last Admin: 10/18/21 10:45 Dose: 10 ml Review of Systems All systems: negative Exam - Constitutional Vitals: Temp Pulse Resp BP Pulse Ox 98.7 F 90 21 119/73 95 10/18/21 10:18 10/18/21 12:45 10/18/21 12:45 10/18/21 12:45 10/18/21 12:45 General appearance: Present: no acute distress, well-nourished - EENT Eyes: Present: PERRL, EOM intact ENT: hearing intact, clear oral mucosa, dentition normal - Neck Neck: Present: supple, normal ROM - Respiratory Respiratory effort: normal Respiratory: bilateral: CTA - Cardiovascular Rhythm: regular Heart Sounds: Present: S1 & S2 - Extremities Extremities: no ischemia, pulses intact, pulses symmetrical, No edema, normal temperature, normal color, Full ROM Peripheral Pulses: within normal limits - Abdominal General gastrointestinal: Present: soft, non-tender, non-distended, normal bowel sounds Male genitourinary: Present: deferred - Rectal Rectal Exam: deferred - Integumentary Integumentary: Present: clear, warm - Musculoskeletal Musculoskeletal: strength equal bilaterally - Psychiatric Psychiatric: appropriate mood/affect, intact judgment & insight, memory intact, cooperative - Neurologic Neurologic: CNII-XII intact, moves all extremities - Allied Health Allied health notes reviewed: nursing HEART Score - HEART Score Troponin: Troponin T 0.015 ng/mL (0.00-0.029) 10/18/21 09:34 Results - Labs CBC & Chem 7: 10/18/21 08:35 10/18/21 09:34 Labs: Laboratory Last Values WBC 10.1 K/mm3 (4.5-11.0) 10/18/21 08:35 RBC 5.20 M/mm3 (3.65-5.03) H 10/18/21 08:35 Hgb 16.4 gm/dl (11.8-15.2) H 10/18/21 08:35 Hct 51.0 % (35.5-45.6) H 10/18/21 08:35 MCV 98 fl (84-94) H 10/18/21 08:35 MCH 32 pg (28-32) 10/18/21 08:35 MCHC 32 % (32-34) 10/18/21 08:35 RDW 14.0 % (13.2-15.2) 10/18/21 08:35 Plt Count 259 K/mm3 (140-440) 10/18/21 08:35 Add Manual Diff Complete 10/18/21 08:35 Total Counted 100 10/18/21 08:35 Seg Neuts % (Manual) 67.0 % (40.0-70.0) 10/18/21 08:35 Band Neutrophils % 2.0 % 10/18/21 08:35 Lymphocytes % (Manual) 23.0 % (13.4-35.0) 10/18/21 08:35 Reactive Lymphs % (Man) 0 % 10/18/21 08:35 Monocytes % (Manual) 6.0 % (0.0-7.3) 10/18/21 08:35 Eosinophils % (Manual) 1.0 % (0.0-4.3) 10/18/21 08:35 Basophils % (Manual) 0 % (0.0-1.8) 10/18/21 08:35 Metamyelocytes % 1.0 % 10/18/21 08:35 Myelocytes % 0 % 10/18/21 08:35 Promyelocytes % 0 % 10/18/21 08:35 Blast Cells % 0 % 10/18/21 08:35 Nucleated RBC % Not Reportable 10/18/21 08:35 Seg Neutrophils # Man 6.8 K/mm3 (1.8-7.7) 10/18/21 08:35 Band Neutrophils # 0.2 K/mm3 10/18/21 08:35 Lymphocytes # (Manual) 2.3 K/mm3 (1.2-5.4) 10/18/21 08:35 Abs React Lymphs (Man) 0.0 K/mm3 10/18/21 08:35 Monocytes # (Manual) 0.6 K/mm3 (0.0-0.8) 10/18/21 08:35 Eosinophils # (Manual) 0.1 K/mm3 (0.0-0.4) 10/18/21 08:35 Basophils # (Manual) 0.0 K/mm3 (0.0-0.1) 10/18/21 08:35 Metamyelocytes # 0.1 K/mm3 10/18/21 08:35 Myelocytes # 0.0 K/mm3 10/18/21 08:35 Promyelocytes # 0.0 K/mm3 10/18/21 08:35 Blast Cells # 0.0 K/mm3 10/18/21 08:35 WBC Morphology Not Reportable 10/18/21 08:35 Hypersegmented Neuts Not Reportable 10/18/21 08:35 Hyposegmented Neuts Not Reportable 10/18/21 08:35 Hypogranular Neuts Not Reportable 10/18/21 08:35 Smudge Cells Not Reportable 10/18/21 08:35 Toxic Granulation Not Reportable 10/18/21 08:35 Toxic Vacuolation Not Reportable 10/18/21 08:35 Dohle Bodies Not Reportable 10/18/21 08:35 Pelger-Huet Anomaly Not Reportable 10/18/21 08:35 Dangelo Rods Not Reportable 10/18/21 08:35 Platelet Estimate Consistent w auto 10/18/21 08:35 Clumped Platelets Not Reportable 10/18/21 08:35 Plt Clumps, EDTA Not Reportable 10/18/21 08:35 Large Platelets Not Reportable 10/18/21 08:35 Giant Platelets Not Reportable 10/18/21 08:35 Platelet Satelliting Not Reportable 10/18/21 08:35 Plt Morphology Comment Not Reportable 10/18/21 08:35 RBC Morphology Normal 10/18/21 08:35 Dimorphic RBCs Not Reportable 10/18/21 08:35 Polychromasia Not Reportable 10/18/21 08:35 Hypochromasia Not Reportable 10/18/21 08:35 Poikilocytosis Not Reportable 10/18/21 08:35 Anisocytosis Not Reportable 10/18/21 08:35 Microcytosis Not Reportable 10/18/21 08:35 Macrocytosis Not Reportable 10/18/21 08:35 Spherocytes Not Reportable 10/18/21 08:35 Pappenheimer Bodies Not Reportable 10/18/21 08:35 Sickle Cells Not Reportable 10/18/21 08:35 Target Cells Not Reportable 10/18/21 08:35 Tear Drop Cells Not Reportable 10/18/21 08:35 Ovalocytes Not Reportable 10/18/21 08:35 Helmet Cells Not Reportable 10/18/21 08:35 [place] Bodies Not Reportable 10/18/21 08:35 Ruth Rings Not Reportable 10/18/21 08:35 [place] Cells Not Reportable 10/18/21 08:35 Bite Cells Not Reportable 10/18/21 08:35 Crenated Cell Not Reportable 10/18/21 08:35 Elliptocytes Not Reportable 10/18/21 08:35 Acanthocytes (Spur) Not Reportable 10/18/21 08:35 Rouleaux Not Reportable 10/18/21 08:35 Hemoglobin C Crystals Not Reportable 10/18/21 08:35 Schistocytes Not Reportable 10/18/21 08:35 Malaria parasites Not Reportable 10/18/21 08:35 Juan Bodies Not Reportable 10/18/21 08:35 Hem Pathologist Commnt No 10/18/21 08:35 PT 13.4 Sec. (12.2-14.9) 10/18/21 08:35 INR 0.92 (0.87-1.13) 10/18/21 08:35 APTT 24.3 Sec. (24.2-36.6) 10/18/21 08:35 Sodium 143 mmol/L (137-145) 10/18/21 09:34 Potassium 5.2 mmol/L (3.6-5.0) H 10/18/21 09:34 Chloride 108.5 mmol/L (98-107) H 10/18/21 09:34 Carbon Dioxide 14 mmol/L (22-30) L 10/18/21 09:34 Anion Gap 26 mmol/L 10/18/21 09:34 BUN 18 mg/dL (9-20) 10/18/21 09:34 Creatinine 2.0 mg/dL (0.8-1.3) H 10/18/21 09:34 Estimated GFR 44 ml/min 10/18/21 09:34 BUN/Creatinine Ratio 9 % 10/18/21 09:34 Glucose 65 mg/dL (75-100) L 10/18/21 09:34 Lactic Acid 5.90 mmol/L (0.7-2.0) H* 10/18/21 09:34 Calcium 9.3 mg/dL (8.4-10.2) 10/18/21 09:34 Magnesium 3.20 mg/dL (1.7-2.3) H 10/18/21 09:34 Total Bilirubin 0.30 mg/dL (0.1-1.2) 10/18/21 09:34 AST 661 units/L (5-40) H 10/18/21 09:34 ALT 481 units/L (7-56) H 10/18/21 09:34 Alkaline Phosphatase 108 units/L (35-129) 10/18/21 09:34 Ammonia 86.0 umol/L (25-60) H 10/18/21 08:35 Total Creatine Kinase 2493 units/L (55-170) H 10/18/21 09:34 Troponin T 0.015 ng/mL (0.00-0.029) 10/18/21 09:34 Total Protein 7.9 g/dL (6.3-8.2) 10/18/21 09:34 Albumin 5.3 g/dL (3.9-5) H 10/18/21 09:34 Albumin/Globulin Ratio 2.0 % 10/18/21 09:34 TSH 1.490 mlU/mL (0.270-4.200) 10/18/21 08:35 Urine Color Yellow (Yellow) 10/18/21 09:51 Urine Turbidity Clear (Clear) 10/18/21 09:51 Urine pH 5.0 (5.0-7.0) 10/18/21 09:51 Ur Specific [place] 1.014 (1.003-1.030) 10/18/21 09:51 Urine Protein 100 mg/dl mg/dL (Negative) 10/18/21 09:51 Urine Glucose (UA) Neg mg/dL (Negative) 10/18/21 09:51 Urine Ketones Neg mg/dL (Negative) 10/18/21 09:51 Urine Blood Lg (Negative) 10/18/21 09:51 Urine Nitrite Neg (Negative) 10/18/21 09:51 Urine Bilirubin Neg (Negative) 10/18/21 09:51 Urine Urobilinogen < 2.0 mg/dL (<2.0) 10/18/21 09:51 Ur Leukocyte Esterase Neg (Negative) 10/18/21 09:51 Urine WBC (Auto) 3.0 /HPF (0.0-6.0) 10/18/21 09:51 Urine RBC (Auto) 1.0 /HPF (0.0-6.0) 10/18/21 09:51 U Epithel Cells (Auto) < 1.0 /HPF (0-13.0) 10/18/21 09:51 Hyaline Casts 4 /LPF 10/18/21 09:51 Granular Casts 3 /LPF 10/18/21 09:51 Urine Mucus Few /HPF 10/18/21 09:51 Urine Sperm 2+ /HPF ([employer] AD[employer]RATOR) 10/18/21 09:51 CSF Appearance Clear 10/18/21 10:55 CSF Color Colorless 10/18/21 10:55 CSF WBC 3 /mm3 (1-10) 10/18/21 10:55 CSF RBC 17 /mm3 (0-0) 10/18/21 10:55 CSF Seg Neutrophils 4.6 % (0-6) 10/18/21 10:55 CSF Lymphocytes % 65.5 % (40-80) 10/18/21 10:55 CSF Monocytes % 29.9 % (15-45) 10/18/21 10:55 CSF Pathologist Review C 10/18/21 10:55 CSF Glucose 88 mg/dL 10/18/21 10:55 CSF Total Protein 38 mg/dL 10/18/21 10:55 Salicylates < 0.3 mg/dL (2.8-20.0) L 10/18/21 08:35 Urine Opiates Screen Negative 10/18/21 09:51 Urine Methadone Screen Negative 10/18/21 09:51 Acetaminophen 5.0 ug/mL (10.0-30.0) L 10/18/21 08:35 Ur Barbiturates Screen Negative 10/18/21 09:51 Ur Phencyclidine Scrn Negative 10/18/21 09:51 Ur Amphetamines Screen Negative 10/18/21 09:51 U Benzodiazepines Scrn Positive 10/18/21 09:51 Urine Cocaine Screen Positive 10/18/21 09:51 U Marijuana (THC) Screen Negative 10/18/21 09:51 Drugs of Abuse Note Disclamer 10/18/21 09:51 Plasma/Serum Alcohol 0.08 % (0-0.07) H 10/18/21 08:35 Hepatitis A IgM Ab Non-reactive (NonReactive) 10/18/21 08:35 Hep Bs Antigen Non-reactive (Negative) 10/18/21 08:35 Hep B Core IgM Ab Non-reactive (NonReactive) 10/18/21 08:35 Hepatitis C Antibody Non-reactive (NonReactive) 10/18/21 08:35 Microbiology: Microbiology 10/18/21 10:55 Cerebral Spinal Fluid CSF Culture - Preliminary 10/18/21 10:55 Cerebral Spinal Fluid Cryptococcal Antigen - Final 10/18/21 08:35 Peripheral/Venous Blood Culture - Preliminary Culture in Progress 10/18/21 08:35 Peripheral/Venous Blood Culture - Preliminary Culture in Progress Assessment and Plan Assessment and plan: #SIRS #Acute metabolic encephalopathy #Acute toxic encephalopathy #Leukocytosisresolved Rectal temperature 102.5, heart rate 102, lactic acid 9.[address] head noncontrast Concern for possible bacterial versus viral encephalopathy. Patient underwent lumbar puncture in ED with samples sent to the lab. Pending CSF Gram stain, culture, and viral panels. Unremarkable CSF cell count. We will continue to follow. Given patient's improvement in mentation, there is lower clinical suspicion for meningitis. Patient received Rocephin, vancomycin, acyclovir, IV Decadron 10 mg x 1, and 3 L IV fluids in the ED. Holding on continuing antibiotics. Unremarkable urinalysis except for large blood. Pending blood culture and urine culture. Ordered as needed Narcan to be kept at the bedside. Urine toxicology screen remarkable for benzos and cocaine. Patient received Haldol 5 mg, Versed 5 mg, and Benadryl 50 mg in route and EMS. Patient placed on 1013 by ED physician due to his original presentation. Continue to monitor. #Lactic acidosisimproving Lactic acid 9.0--> 5.9 Trending lactic acid until unremarkable. Likely had significant improvement after IV fluid resuscitation. Possibly caused by cocaine and erratic behavior. #Acute hypoxic respiratory failure - etiology: Possibly secondary to increased benzo administration - baseline oxygen requirements: Room air - supplemental oxygen: 2 L nasal cannula - Continue protocol: continue pulse oximetry, wean oxygen as tolerated, ordered incentive spirometry and educated patient on how to use it and its importance. - continue to monitor #ANJANA secondary to vasomotor nephropathy/prerenal versus ATN secondary to rhabdomyolysis Creatinine 2.0 (baseline unknown) Likely secondary to vasomotor nephropathy/prerenal Continue IV fluid resuscitation and continue to monitor with repeat CMP. Renally dose meds and avoid nephrotoxic drugs. Holding on nephrology consult. #Rhabdomyolysis CK 2493 Likely secondary to cocaine administration and acute psychosis. Continue IV fluid resuscitation. #Hyperkalemia Potassium 5.2 Likely secondary to acute kidney injury. Continue to monitor with repeat CMP. #Hypomagnesemia Magnesium 3.2 Continue to monitor with repeat labs. Holding medical management currently. Likely increased in the setting of cocaine and increased physical activity prior to presentation. #Elevated transaminases #Elevated ammonia AST 661, ALT 41, ammonia 86 Patient currently denying any hepatic abnormalities/comorbidities. Pending hepatitis panel. Continuing to monitor with repeat CMP. Consider gastroenterology consult showed transaminases significantly worsened. #Alcohol dependence - Counseled patient on the importance of ETOH cessation. Assess patient's current ETOH consumption. Assisted with trying to arrange resources for patient to adequately work towards ETOH cessation. Patient expresses understanding. -Blood alcohol 0.08 -Time: +15 mins #Polysubstance dependence -Patient engages in the following substances: Cocaine -Counseled patient about the importance of cessation of substance abuse. Offered resources to help with quitting. Patient expresses understanding. -Time: +15 mins #Advanced care planning -Disease education conducted, care plan discussed, diagnoses discussed, prognosis discussed, and patient acknowledges understanding with care plan -Time: +30 min Advance Directives: No VTE prophylaxis?: Chemical Plan of care discussed with patient/family: Yes
[2021-10-18 20:57] VITALS: BP 142/84
[2021-10-19] MEDS ORDERED: ENOXAPARIN 40 MG/0.4 ML INJ SUB-Q SCH (10:00)
--- NOTE | 2021-10-19 10:05 | Electrocardiograph Report ---
[facility] Test Date: 2021-10-18 Test Time: 09:46:33 Pat Name: SANDER REEVES Department: Room: [place] [address] Gender: M [employer] Advisor: ANNA : [id number] Requested By: RICHELLE PAIGE Order Number: [id number] Reading MD: Maxwell Sullivan Measurements Intervals [place] Rate: 100 P: 69 AL: 133 QRS: -17 QRSD: 79 T: 17 QT: 345 QTc: 445 Interpretive Statements Sinus tachycardia Probable left atrial enlargement Probable left ventricular hypertrophy No previous ECG available for comparison Electronically Signed On 10-19-2021 10:04:43 EDT by Maxwell Sullivan
== END 2021-10-18 22:19 | disposition left against medical advice (07) | DRG 91 ==
LOC: ED 07:31 → 3A 10:45
PROVIDERS: ADMIT Student in an Organized Health Care Education/Training Program; ATTEND Student in an Organized Health Care Education/Training Program
PROC: 009U3ZX Drainage of Spinal Canal, Percutaneous Approach, Diagnostic (ICD-10-PCS; principal; 2021-10-18)
DX: G92.8 Other toxic encephalopathy (principal); N17.0 Acute kidney failure with tubular necrosis; J96.01 Acute respiratory failure with hypoxia; R65.10 Systemic inflammatory response syndrome (SIRS) of non-infectious origin without acute organ dysfunction; E87.2 Acidosis; M62.82 Rhabdomyolysis; F14.20 Cocaine dependence, uncomplicated; R74.01 Elevation of levels of liver transaminase levels; Z20.822 Contact with and (suspected) exposure to COVID-19; E16.2 Hypoglycemia, unspecified; E83.42 Hypomagnesemia; E87.5 Hyperkalemia; F10.20 Alcohol dependence, uncomplicated; Y90.9 Presence of alcohol in blood, level not specified; Z82.49 Family history of ischemic heart disease and other diseases of the circulatory system; Z53.29 Procedure and treatment not carried out because of patient's decision for other reasons
CPT/HCPCS: 36415; 70450; 71045; 80053; 80074; 80307; 80320; 81001; 82140; 82550; 82947; 82962; 83735; 84145; 84160; 84443; 84484; 85007; 85025; 85610; 85730; 86403; 87040; 87086; 87116; 87498; 87799; 89051; 93005; G0378; J3490; G0480; J0133; J0696; J1100; J2250; J3370; J3411; J7030; J7040; J7120; U0003